=== PATIENT | female | born 1940 | race African-American/Black ===

== ENCOUNTER 2018-10-22 12:00 | Emergency (ER) | payer OTHER ==
[~2018-10-22] VITALS: Ht 154.9 cm; Wt 86.2 kg
[~2018-10-22 12:00] MED LIST: ALTACE10 MG PO; ANTIVERT25 MG PO; ASPERDRINK81 MG PO; CALCIUM + VITA1 EACH PO; COREG25 MG PO; FISH OIL 1,001000 M2 PO; HYDRALAZINE 2525 MG PO; MULTIVITAMINS1 EAC7 PO; NORCO 5-325 TA1 EACH PO; ONDANSETRON HCL4 M2 PO; PEPCID20 MG PO; SIMVASTATIN40 MG PO; ZOFRAN ODT4 MG PO
[2018-10-22] MEDS ORDERED: VALIUM5 MG PO (12:59)
[2018-10-22 13:33] VITALS: BP 143/99
== END 2018-10-22 13:37 | disposition home or self-care (01) ==
LOC: ER 12:00
DX: S16.1XXA Strain of muscle, fascia and tendon at neck level, initial encounter (principal); M43.6 Torticollis; I10 Essential (primary) hypertension; E78.00 Pure hypercholesterolemia, unspecified; M19.90 Unspecified osteoarthritis, unspecified site; Z88.8 Allergy status to other drugs, medicaments and biological substances; X58.XXXA Exposure to other specified factors, initial encounter; Y93.89 Activity, other specified; Y92.89 Other specified places as the place of occurrence of the external cause; Y99.8 Other external cause status

== ENCOUNTER 2019-08-20 22:02 | Emergency (ER) | payer OTHER ==
[~2019-08-20] VITALS: Ht 154.9 cm; Wt 81.7 kg
[~2019-08-20 22:02] MED LIST changes: +VALIUM5 MG PO
[2019-08-20 22:05] VITALS: BP 124/81
[2019-08-20] MEDS ORDERED: PENICILLIN V P500 MG PO (22:33)
== END 2019-08-20 22:40 | disposition home or self-care (01) ==
LOC: ER 22:02
DX: J34.89 Other specified disorders of nose and nasal sinuses (principal); H57.89 Other specified disorders of eye and adnexa; I10 Essential (primary) hypertension; E78.00 Pure hypercholesterolemia, unspecified; M19.90 Unspecified osteoarthritis, unspecified site; Z98.890 Other specified postprocedural states; Z88.8 Allergy status to other drugs, medicaments and biological substances